=== PATIENT | female | born 1950 | race Caucasian/White ===

== ENCOUNTER 2018-01-09 09:26 | Inpatient (IN) ==
--- NOTE | 2018-01-08 16:34 | Discharge Summary ---
<Rakan Andres - Last Filed: 01/09/18 10:38> Orders not resulted at time of discharge: Pending orders 01/09/18 01:00 XR knee RT limited 1-2V [XR] Routine Hemoglobin and Hematocrit [HEME] Routine 01/09/18 07:55 US anesthesia pain block [US] Routine Date of Encounter: 01/09/18 - Discharge Diagnosis (1) Obesity (BMI 35.0-39.9 without comorbidity) Priority: Secondary Status: Chronic (2) Osteoarthritis of right knee Priority: Primary Status: Chronic Qualifiers: Osteoarthritis type: unspecified Qualified Code(s): M17.11 - Unilateral primary osteoarthritis, right knee (3) Status post total right knee replacement Priority: Primary Status: Acute (4) HTN (hypertension) Priority: Secondary Status: Chronic Qualifiers: Hypertension type: unspecified Qualified Code(s): I10 - Essential (primary ) hypertension (5) Polycystic kidney disease Priority: Secondary Status: Chronic (6) Chronic kidney disease (CKD), stage III (moderate) Priority: Secondary Status: Chronic (7) Secondary hyperparathyroidism Priority: Secondary Status: Chronic - Hospital Course Hospital course: Ms. Roth is a 67 year old female - Time Spent with Patient Total time spent providing and/or coordinating discharge services: - Discharge Medications Prescriptions: Apixaban [Eliquis] 2.5 mg PO BID 12 Days #24 tablet Home Medications: OxyCODONE Immed Rel [Roxicodone 5 MG] 5 mg PO Q6HR PRN 7 Days #28 tablet [Rx] ALPRAZolam [Xanax 0.5 MG Tablet] 0.5 mg PO BID PRN 01/09/18 [History] Atorvastatin [Lipitor] 10 mg PO HS 01/09/18 [History] Bupropion HCl [Wellbutrin Xl] 300 mg PO DAILY 01/09/18 [History] Cholecalciferol (D-3) [Vitamin D] 2,000 unit PO DAILY 01/09/18 [History] Losartan/HCTZ [Hyzaar 50-12.5 Tablet] 1 tab PO BID 01/09/18 [History] Potassium Chloride [K-Tab ER] 20 meq PO BID 01/09/18 [History] Ranitidine HCl [Zantac 75] 75 mg PO DAILY PRN 01/09/18 [History] Zolpidem [Ambien] 10 mg PO HS 01/09/18 [History] Apixaban [Eliquis] 2.5 mg PO BID 12 Days #24 tablet 01/13/18 [Rx] Allergies/Adverse Reactions: 3 Allergy/AdvReac Type Severity Reaction Status Date / Time aspirin Allergy See Verified 01/09/18 10:11 Comments ciprofloxacin [From Cipro] Allergy Hives Verified 01/09/18 10:11 codeine Allergy Itching Verified 01/09/18 10:11 Hydromorphone [From Dilaudid] Allergy Itching Verified 01/09/18 10:11 ibuprofen [From Advil] Allergy See Verified 01/09/18 10:11 Comments Quinolones Allergy See Verified 01/09/18 10:11 Comments Sulfa (Sulfonamide Allergy Hives Verified 01/09/18 10:11 Antibiotics) Primary care physician: Isreal Eng DO - Patient Status Disposition: Transfer Hospital Swing Bed Condition: Good - Discharge Instructions Follow Up With: Isreal Eng DO [Primary Care Provider] - Additional Instructions: Discharge Instructions: Total Knee Replacement Please call [facility] ([phone]), your Primary Care Physician, or report to the Emergency Room if you have any of the following symptoms: Nausea, vomiting, fever greater that 101.5, swelling, chest pain, shortness of breath, increased pain/redness/drainage/odor for your incision site, numbness/ tingling, or any other concerning symptoms. ACTIVITY:Weight-bearing as tolerated. You may progress off support (crutches or walker) as tolerated. Incentive Spirometer 10 times an hour. MEDICATIONS: Upon discharge resume your home medications. Take all the medications as prescribed. Take a stool softener if taking narcotic pain medications. Stool softeners are only effective if you drink enough fluids. Drink 6-8 glass of water or fluids a day, unless this is not allowed for another health problem. Despite using stool softeners, if you haven't had a bowel movement in 3 days, please switch to a gentle laxative. Gentle laxatives are sold over the counter. You should have a bowel movement within 24 hours, if not call the office. You will be discharged from the hospital with a prescription for pain medication. You are encouraged to decrease the use of narcotic pain medication as tolerated. Should you require a refill, please call the office. [facility] prescribes narcotic pain medication for only 4-6 weeks after surgery. If you require pain medication beyond this time period, you may be referred to your Primary Care Physician or to the Pain Clinic for further evaluation. Plan ahead for refills on pain medication as many narcotics either need to be picked up at the office or mailed. It is best to call 48-72 hours in advance of needing a prescription refill so you don't run out of medication. To help control the post-operative pain, you may take NSAIDs (Aleve,Advil, Motrin, Ibuprofen, Naprosyn) or Tylenol as prescribed on the bottle in addition to the pain medication. ANTICOAGULATION (blood thinners): Continue your Aspirin, Lovenox or Coumadin as prescribed to help prevent a blood clot in the leg or in the lungs. As long as your incision remains dry and you tolerate the NSAIDs (Aleve, Advil, Motrin, ibuprofen, naprosyn), it is OK to use the NSAIDS while you are taking your anticoagulation medication. Should your incision start to drain, stop the NSAID and contact our office. Common symptoms of blood clot in the legs include: localized pain, swelling, calf tenderness, redness or discoloration of the skin. Blood clot in the lung symptoms include: shortness of breath, rapid pulse, sweating, and chest pain that worsens with deep breathing, coughing up blood, lightheadedness, feelings of anxiety. If you experience any of these symptoms notify your physician immediately, go to the emergency room, or if having trouble breathing, call 911. WOUND CARE: Leave the dressing on for 7 to 10days. You may change the dressing if it becomes saturated greater than 50%. Do not get the dressing wet at anytime. Wash your hands with antibacterial soap, rinse and dry prior to any wound care. If you have pepe the visiting nurse or rehab facility can remove the stapes 10-14 days after surgery and place steri-strips across the wound. Leave the steri-strips in place until they fall off on their won. You may let water from the shower run on top of the steri-strips. If you do not have a visiting nurse or rehab facility, you will need to return to the office at 10-14 days for the pepe to be removed. If you have itching or redness around the dressing call the office. FOLLOW-UP: Please follow up with your surgeon in the orthopedic clinic in 4 weeks from the day of surgery. If you have pepe that need to be removed, you will need to come back to the office in 10-14 days from the day of surgery. <MarileeYara E - Last Filed: 01/13/18 21:20> Orders not resulted at time of discharge: Pending orders 01/09/18 01:00 XR knee RT limited 1-2V [XR] Routine Hemoglobin and Hematocrit [HEME] Routine Date of Encounter: 01/13/18 Time of Encounter: 12:43 - Discharge Diagnosis (1) Osteoarthritis of right knee Priority: Primary Status: Chronic Qualifiers: Osteoarthritis type: unspecified Qualified Code(s): M17.11 - Unilateral primary osteoarthritis, right knee (2) Status post total right knee replacement Priority: Primary Status: Acute (3) HTN (hypertension) Priority: Secondary Status: Chronic Qualifiers: Hypertension type: unspecified Qualified Code(s): I10 - Essential (primary ) hypertension (4) Polycystic kidney disease Priority: Secondary Status: Chronic (5) Chronic kidney disease (CKD), stage III (moderate) Priority: Secondary Status: Chronic (6) Secondary hyperparathyroidism Priority: Secondary Status: Chronic (7) Obesity Priority: Secondary Status: Chronic Qualifiers: Obesity type: unspecified obesity type Obesity classification: unspecified obesity classification Serious obesity comorbidity presence: unspecified whether serious comorbidity present Qualified Code(s): E66.9 - Obesity, unspecified - Hospital Course Hospital course: Ms. oRth is a 67 year old female POD#4 status post left total knee replacement robotic 01/09/18 Dr. Andres Patient seen at bedside. She is resting in chair - significant other in room. Alert and oriented x 3. Incision clean dry and intact. Dressing intact. No calf tenderness to bilateral lower extremities. Neurovascular intact to bilateral lower extremity. Labwork and medications reviewed. Vital signs reviewed. Pain control: Adequate - current pain regiment working. Nausea stable with PRN Zofran Participating in PT. All questions and concerns addressed. Educated on use of incentive spirometer, ambulation, and hydration. Patient educated on post-operative restrictions and care. Addressed: Patient converted to inpatient status. Patient has polycystic kidney disease and therefore may not be able to take DVT prophylaxis of aspirin upon discharge. We will consult with her oss architect who is here at [facility] for advisement regarding aspirin use following surgery so as not to affect her kidneys. We did discuss alternatives such as Eliquis. Patient is agreeable to try this. Prescription for discharge printed and ready for when she transfers to rehab. D/C plan: Patient requires 3 night stay secondary to her insurance. She will be discharging to [facility] on Saturday 01/13. - Time Spent with Patient Total time spent providing and/or coordinating discharge services: Less than 30 minutes Date of admission: 01/09/18 Primary care physician: Isreal Eng DO Anticipated date of discharge: 01/13/18 Labs on day of discharge: Vital Signs Temp Pulse Resp BP Pulse Ox 01/13/18 10:36 98.6 F 87 18 127/77 96 01/13/18 06:40 98.3 F 88 20 129/65 97 01/13/18 00:10 98.4 F 88 16 112/74 94 Intake and Output 01/13/18 01/13/18 01/13/18 07:59 15:59 23:59 Intake Total 200 / 200 Output Total 400 / 400 Balance -400 / -400 200 / 200 Intake: Oral 200 / 200 Output: Urine 400 / 400 Other: Meal Lunch Percent of Meal Consumed 10% Stool Size Moderate Stool Consistency soft Stool Color Brown # Bowel Movements 1 Blood Glucose* 126 104 - Impressions Knee X-Ray 01/09/18 01:00 IMPRESSION: Status post right knee arthroplasty without acute postop complication. D/ / 01/09/2018 15:08:19 Teo Daniels MD / bcarter Interpreting Provider: Teo Daniels MD - Patient Status Functional capacity at discharge: uses cane/walker Overall status at discharge: patient is progressing back to baseline - Diet and Activity Activity: as per physical therapy Diet: advance to your usual diet
--- NOTE | 2018-01-08 16:37 | Physician Discharge Referral ---
Home Health/Hosp Referral Info Transfer to: Home Health (Patient switched to inpatient rehab from home health plan) Attending Provider: Dr. Rakan Andres Provider in Charge Post Discharge: PCP - Diagnosis (1) Osteoarthritis of right knee Priority: Primary Status: Chronic (2) Status post total right knee replacement Priority: Primary Status: Acute (3) HTN (hypertension) Priority: Secondary Status: Chronic (4) Polycystic kidney disease Priority: Secondary Status: Chronic (5) Chronic kidney disease (CKD), stage III (moderate) Priority: Secondary Status: Chronic (6) Secondary hyperparathyroidism Priority: Secondary Status: Chronic (7) Obesity Priority: Secondary Status: Chronic - Respiratory Orders Smoking Cessation: Smoking cessation has been advised. For more information, call the [employer] Tobacco Quit Line at 0-058-ZJSL-NOW. - Dressing/Wound Care Site: right knee Type of Dressing/Treatments w/Frequency: Opsite placed. Keep dressing intact until first follow up appointment. If greater than 50% saturated, notify office, remove dressing and place appropriate dressing back in place. Leave Zipline intact. Opsite dressing is water resistant, not water-proof. OK to shower, but do not get dressing wet. - Diet/Nutrition Diet/Nutrition Orders: Regular - Activity Activity Orders: Up ad sapna, Ambulate, Chair, Walker Activity: List: Total Knee replacement Precautions x 6 weeks Apply cold therapy wrap 3-6x/day for 20 minutes at a time. Encourage ambulation throughout the day and incentive spirometer 10x/hour. Elevate affected extremity above heart as tolerated. Brace: Wear knee immobilizer at night x 2 weeks. - Services Needed Following services are medically necessary services: Nursing, Home Health Aide, Physical Therapy, Occupational Therapy, Med Social Work - Transfer Medications Prescriptions: Apixaban [Eliquis] 2.5 mg PO BID 12 Days #24 tablet Home Medications: OxyCODONE Immed Rel [Roxicodone 5 MG] 5 mg PO Q6HR PRN 7 Days #28 tablet [Rx] ALPRAZolam [Xanax 0.5 MG Tablet] 0.5 mg PO BID PRN 01/09/18 [History] Atorvastatin [Lipitor] 10 mg PO HS 01/09/18 [History] Bupropion HCl [Wellbutrin Xl] 300 mg PO DAILY 01/09/18 [History] Cholecalciferol (D-3) [Vitamin D] 2,000 unit PO DAILY 01/09/18 [History] Losartan/HCTZ [Hyzaar 50-12.5 Tablet] 1 tab PO BID 01/09/18 [History] Potassium Chloride [K-Tab ER] 20 meq PO BID 01/09/18 [History] Ranitidine HCl [Zantac 75] 75 mg PO DAILY PRN 01/09/18 [History] Zolpidem [Ambien] 10 mg PO HS 01/09/18 [History] Apixaban [Eliquis] 2.5 mg PO BID 12 Days #24 tablet 01/13/18 [Rx] Allergies/Adverse Reactions: 3 Allergy/AdvReac Type Severity Reaction Status Date / Time aspirin Allergy See Verified 01/09/18 10:11 Comments ciprofloxacin [From Cipro] Allergy Hives Verified 01/09/18 10:11 codeine Allergy Itching Verified 01/09/18 10:11 Hydromorphone [From Dilaudid] Allergy Itching Verified 01/09/18 10:11 ibuprofen [From Advil] Allergy See Verified 01/09/18 10:11 Comments Quinolones Allergy See Verified 01/09/18 10:11 Comments Sulfa (Sulfonamide Allergy Hives Verified 01/09/18 10:11 Antibiotics) Certification: Further, I certify that my clinical findings support that this patient is homebound (i.e. absences from home require considerable and taxing effort and are for medical reasons or mosque services or infrequently or short duration when for other reasons) because: Homebound Reason: Post-surgery restriction and or conditions limit ability to leave home Attestation: My signature below is to certify that this patient is under my care and that I, or nurse practitioner, or a physician technician assistant working with me, has a face-to- face encounter with this patient.
[2018-01-09] MEDS ORDERED: CeFAZolin Syr 2,000MG/20 ML 2,000 MG/20 ML SYRINGE IVPB ONE (09:51)
[2018-01-09] MEDS ORDERED: *HR* Midazolam HCl 2 MG/2 ML VIAL ONE (09:55)
[2018-01-09] MEDS ORDERED: *HR* FentaNYL (PF) 100 MCG/2 ML VIAL ONE ×3 (09:55→12:28)
[2018-01-09] MEDS ORDERED: Lidocaine -MPF 2% 2 ML VIAL ONE ×2 (09:56→11:18)
[2018-01-09] MEDS ORDERED: Propofol 500 MG/50 ML INFUS..BTL ONE (09:56)
[2018-01-09] MEDS ORDERED: Dexamethasone 4 MG/ML VIAL ONE (09:56)
[2018-01-09] MEDS ORDERED: Ondansetron 4 MG/2 ML VIAL ONE (09:56)
[2018-01-09] MEDS ORDERED: Ringers Solution, Lactated 1,000 ML IVC SCH ×2 (10:00→14:58)
[2018-01-09] MEDS ORDERED: ROPIVACAINE HCL/PF 0.5% 30 ML VIAL ONE (10:35)
--- NOTE | 2018-01-09 10:37 | Anesthesia Evaluation PreOp ---
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 due to methadone) Alcohol Use: occasionally Drug use: none Medications and Allergies Aspirin Enteric Coated [Aspirin EC] 325 mg PO BID 10 Days #20 tablet. [Rx] OxyCODONE Immed Rel [Roxicodone 5 MG] 5 mg PO Q6HR PRN 7 Days #28 tablet [Rx] ALPRAZolam [Xanax 0.5 MG Tablet] 0.5 mg PO BID PRN 01/09/18 [History] Atorvastatin [Lipitor] 10 mg PO HS 01/09/18 [History] Bupropion HCl [Wellbutrin Xl] 300 mg PO DAILY 01/09/18 [History] Cholecalciferol (D-3) [Vitamin D] 2,000 unit PO DAILY 01/09/18 [History] Losartan/HCTZ [Hyzaar 50-12.5 Tablet] 1 tab PO BID 01/09/18 [History] Potassium Chloride [K-Tab ER] 20 meq PO BID 01/09/18 [History] Ranitidine HCl [Zantac 75] 75 mg PO DAILY PRN 01/09/18 [History] Zolpidem [Ambien] 10 mg PO HS 01/09/18 [History] 3 Allergy/AdvReac Type Severity Reaction Status Date / Time aspirin Allergy See Verified 01/09/18 10:11 Comments ciprofloxacin [From Cipro] Allergy Hives Verified 01/09/18 10:11 codeine Allergy Itching Verified 01/09/18 10:11 Hydromorphone [From Dilaudid] Allergy Itching Verified 01/09/18 10:11 ibuprofen [From Advil] Allergy See Verified 01/09/18 10:11 Comments Quinolones Allergy See Verified 01/09/18 10:11 Comments Sulfa (Sulfonamide Allergy Hives Verified 07/30/18 10:11 Antibiotics) - Meds/Allergy Pre-op Review Medications Reviewed: Yes Allergies Reviewed: Yes Beta Blockers on Current Med List: No Anesthesia Results - Labs Laboratory Tests 12/23/17 12/23/17 01/02/18 14:45 14:45 14:25 Hgb 13.4 Hct 41.0 Plt Count 289 PT 11.1 INR 1.0 APTT 58.2 H Potassium 4.1 Carbon Dioxide 26 BUN 18 Creatinine 1.22 H Est GFR (Non-Af Amer) 44 L Glucose 98 01/04/18 13:13 Hgb Hct Plt Count PT INR APTT 60.6 H Potassium Carbon Dioxide BUN Creatinine Est GFR (Non-Af Amer) Glucose Anesthesia Exam O2 Sat Height 1.63 m Height 1.63 m Height 1.63 m Weight 104.326 kg Weight 104.326 kg Weight 104.326 kg O2 Sat by Pulse Oximetry 95 Vital Signs Temp Pulse Resp BP Pulse Ox 98.3 F 83 18 121/73 95 01/09/18 09:47 01/09/18 09:47 01/09/18 09:47 01/09/18 09:47 01/09/18 09:47 NPO (# of Hours): 8 - HEENT Pupil (Motor): Pupils equal Mallampati: II Teeth: Edentulous Denture Type: Upper: Complete, Lower: Complete Oral Opening: Greater than 3 - GR[employer] 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
--- NOTE | 2018-01-09 10:38 | History & Physical Report ---
Date of Encounter: 01/09/18 Time of Encounter: 10:38 24 Hour HP Update - Instructions Instructions: If the History and Physical is less than 30 days old and was completed prior to A.M. admission and or procedure and has NOT been updated on calendar day of procedure please complete this update prior to performing procedure. - Update Patient reports changes in Medical Condition: No Changes in examination, assessment, or condition: No Changes in Medication: No Preop tests/diagnostics Reviewed: Yes Surgery Remains Indicated: Yes Consent for Planned Operative Procedure(s) Verified: Yes - Pre-Operative Checklist Preoperative Checklist Indicated: No Prophylactic Antibiotic Ordered: Yes Is VTE Prophylaxis Indicated?: Yes
[2018-01-09] MEDS ORDERED: Bupivacaine/Clonidine Syringe 1 EACH SYRINGE ONE (10:41)
[2018-01-09] MEDS ORDERED: Acetaminophen IV 1,000 MG/100 ML INFUS..BTL ONE (10:50)
[2018-01-09] MEDS ORDERED: Ethanol\\Acetic Acid\\Na Ace\\Ben 1,000 ML IRRIG.SOLN IR ONE (11:16)
[2018-01-09] MEDS ORDERED: *HR* Propofol 200 MG/20 ML VIAL IVP ONE ×2 (11:18→11:56)
--- NOTE | 2018-01-09 11:18 | Anesthesia Procedures ---
Date of Encounter: 01/09/18 Time of Encounter: 11:00 Procedures: Anesthesia - Nerve Block Procedure Date: 01/09/18 Time: 11:00 Allergies/Adv Reactions: cipro, dilaudid, quinolonesASA, Codeine, Ibuprofen Pre-op Diagnosis: Right Knee Arthritis Surgical Procedure: Robotic Right Total Knee Arthroplasty Checklist: Correct Patient Identifier, Correct procedure, History checked Correct side: Right Blood Thinner: No Monitor Applied: EKG, BP, Pulse Oximetry Supplemental Oxygen via Nasal Cannula (L/min): 2 Sedation: Versed (mg): 2 Sedation: Fentanyl (mcg): 100 Indication: Post Op Analgesia Pre-op Neuro Deficits: No Block Type: Other (Adductor Canal and Ipack) Sterile Technique: No Ultrasound used: Yes Anatomy identified: Yes Visual spread of Local: Yes Neuro Stimulation: No Blood on Needle Aspiration: No Smooth Injection of Local: Yes Pain with Injection of Local: No Prep: Chlorhexadine Needle: 21 x 100 mm Stimuplex Local: 0.25% Bupivicaine w/Clonidine 20 mcg/cc (for Ipackl), Ropivacaine (.5% 30 ml for adductor canal) Volume (cc): 50ml total Number of Attempts: 1 (1 attempt for each block) Complications: None/effective block Vitals: VSS throughout Procedure
[2018-01-09] MEDS ORDERED: *HR* Morphine 10 MG/ML VIAL ONE ×2 (11:57→12:36)
[2018-01-09] MEDS ORDERED: Dexamethasone 4 MG/ML VIAL IVP ONE (12:14)
[2018-01-09] MEDS ORDERED: *HR* OxyCODONE Immed Rel 5 MG TABLET PO PRN (12:14)
[2018-01-09] MEDS ORDERED: *HR* Promethazine 25 MG/ML VIAL IVP PRN (12:14)
--- NOTE | 2018-01-09 12:37 | Orthopedic Operative Note ---
Date of procedure: 01/09/18 Pre-op diagnosis: Right knee arthritis Post-op diagnosis: same Procedure: Procedure: Right robotic-assisted Total knee replacement Estimated blood loss: 500 cc Hardware: Metal and polyethylene replacement. Rexford Femur: 4 Tibia: 4 TS insert: 9 Patella: 36 Exam Under anesthesia: 7 degree flexion contracture 8 degree varus as calculated by the robot full flexion and no instability Procedural Notes: Grade 4 arthritic changes all 3 compartments. Operative procedure: The patient was brought to the operating room and placed on the operating room table. After general anesthesia was administered the operative knee was examined. Findings were noted in the exam under anesthesia. The operative extremity was prepped and draped in sterile surgical fashion. The patient received IV antibiotics prior to skin incision. A standard midline incision was made centered over the patella. The incision was made through the skin and subcutaneous tissue. A medial parapatellar tendon approach was performed. Care was taken to preserve tissue along the medial aspect of the patella. And to protect the patella tendon. The deep MCL was released off the medial tibia. The infra patella fat pad was excised. The patella was everted and cut was made at the level of the insertion of the quadriceps and patella tendon. The patella was sized to a 36 the guide was seated and the lug holes are drilled. Knee was brought into flexion. Patient noted to have Steinmann pins were placed in the tibia and the femur for the tibial and femoral arrays respectively. Checkpoints were also placed in the tibia and the femur for calculation purposes. The knee including the femur and the tibial registered. Osteophytes, ACL and PCL were excised at this point. Extension and flexion were assessed with a valgus stress components were adjusted on the computer to balance the knee. Femoral cuts were made first with robotic assistance, these included the anterior cut posterior cuts chamfer cuts. Tibial cut was then performed with robotic assistance as well. Bone fragments were removed, as well as the medial and lateral meniscus. The size 4 femoral guide was seated box cut was made lug holes are drilled. The size 4 tibial tray was seated and prepared with the fin cutter. Trial reduction with the 9 TS Iveth revealed extension of 0 degree and 4 degree varus full flexion. No varus valgus instability. Trial reduction revealed excellent patella tracking. All trial components were removed all bony surfaces were irrigated. The Tibia was seated followed by the femur, The Iveth size 9 was seated and secured patella. Patient had similar findings for motion and stability. The knee was closed by the PA. The knee was then irrigated out with 2 L of pulse irrigation. The extensor mechanism was closed with #2 FiberWire suture and #2 PDS suture. The subcutaneous tissue was then irrigated and closed deep with #1 PDS suture superficially with 0 PDS suture and skin was closed with zip tie The patient was then placed in a sterile dressing and a postoperative brace extubated and transferred to recovery room in stable condition. Anesthesia: GETA Surgeon: Rakan Andres Was there an graphic design assistant present: Yes Air Boatswain: Glendy Galvan Estimated blood loss (cc): 500 Condition: stable Disposition: PACU
[2018-01-09] MEDS: MORPHINE SUL Oral CONC 10 MG/0.5 ML ORAL.SYG SL PRN ×2 (13:16→13:28)
[2018-01-09 13:37] LABS: Hematocrit 38.4 % (35.3-44.9); Hemoglobin 12.8 g/dL (11.5-15.4)
[2018-01-09] MEDS ORDERED: MOM Conc 10 ML UD.LIQ PO PRN (14:58)
[2018-01-09] MEDS ORDERED: Naloxone 0.4 MG/ML INJ IVP PRN (14:58)
[2018-01-09] MEDS ORDERED: Famotidine 20 MG TABLET PO PRN (14:58)
[2018-01-09] MEDS ORDERED: Dextrose Gel 15 GM/37.5 ML TUBE PO PRN ×2 (14:58)
[2018-01-09] MEDS ORDERED: Sennosides 8.6 MG TABLET PO PRN (14:58)
[2018-01-09] MEDS ORDERED: traMADol 50 MG TABLET PO PRN (14:58)
[2018-01-09] MEDS ORDERED: Ondansetron 4 MG/2 ML VIAL IVP PRN (14:58)
[2018-01-09] MEDS ORDERED: Temazepam 15 MG CAPSULE PO PRN (14:58)
[2018-01-09] MEDS ORDERED: *HR* Dextrose 50 % in Water (Syg) 50 ML SYRINGE IVP PRN (14:58)
[2018-01-09] MEDS ORDERED: D5% in Water 1,000 ML IVC PRN (14:58)
[2018-01-09] MEDS: Insulin LISPRO 300 UNITS/3 ML VIAL SQ SCH ×3 (15:26→21:29)
[2018-01-09] MEDS: *HR* Enoxaparin 30 MG/0.3 ML SYRINGE SQ SCH (18:02)
--- NOTE | 2018-01-09 18:46 | Anesthesia Evaluation Post Op ---
Date of Encounter: 01/09/18 Time of Encounter: 14:10 Notes: Patient's vital signs have been reviewed. Patient is stable postoperatively and has adequately recovered from anesthesia. Patient is determined to have stable airway patency and respiratory function including respiratory rate and oxygen saturation. Patient has a stable heart rate, blood pressure and adequate hydration. Patients mental status is acceptable. Patients temperature is appropriate. Pain and nausea are adequately controlled. - Discharge PostOp Status: Transfer Patient to floor
[2018-01-09] MEDS: Losartan/HCTZ 50-12.5 TABLET PO SCH (21:05)
[2018-01-09] MEDS: ALPRAZolam 0.5 MG TABLET PO PRN (21:12)
[2018-01-10] MEDS: *HR* OxyCODONE/APAP 5/325 TABLET PO PRN ×5 (01:41→23:54)
[2018-01-10 01:44] LABS: Hematocrit 34.8 % (35.3-44.9); Hemoglobin 11.4 g/dL (11.5-15.4)
[2018-01-10 02:05] LABS: Calcium 8.8 mg/dL (8.6-10.3); Potassium 4.1 mEq/L (3.5-5.1)
[2018-01-10] MEDS: *HR* Enoxaparin 30 MG/0.3 ML SYRINGE SQ SCH ×2 (05:10→18:42)
--- NOTE | 2018-01-10 06:50 | Orthopedics Progress Note ---
Date of Encounter: 01/10/18 Time of Encounter: 06:50 - Assessment and Plan (1) Obesity (BMI 35.0-39.9 without comorbidity) Current Visit: Yes Status: Chronic (2) Osteoarthritis of right knee Current Visit: No Status: Chronic Qualifiers: Osteoarthritis type: unspecified Qualified Code(s): M17.11 - Unilateral primary osteoarthritis, right knee (3) Status post total right knee replacement Current Visit: No Status: Acute (4) HTN (hypertension) Current Visit: No Status: Chronic Qualifiers: Hypertension type: unspecified Qualified Code(s): I10 - Essential (primary ) hypertension (5) Polycystic kidney disease Current Visit: No Status: Chronic (6) Chronic kidney disease (CKD), stage III (moderate) Current Visit: No Status: Chronic (7) Secondary hyperparathyroidism Current Visit: No Status: Chronic Subjective Interval history: Patient was seen this morning doing well without complaints. Afebrile vital signs stable. Operative extremity: Neurovascularly intact Dressing clean dry and intact Calves nontender Assessment and plan: Continue with postoperative care Hematocrit 34 patient is unsafe to go home will require ECF converted to inpatient status. Objective Vital signs: Vital Signs Temp Pulse Resp BP Pulse Ox 01/10/18 03:43 98.3 F 85 16 105/69 96 01/09/18 23:38 99.2 F 88 16 122/75 97 01/09/18 19:42 98.1 F 92 16 114/75 95 01/09/18 18:06 97.4 F L 96 16 122/79 95 01/09/18 16:50 97.7 F 89 16 138/91 94 01/09/18 15:50 97.6 F 82 16 136/84 97 01/09/18 15:20 97.8 F 88 16 134/84 98 01/09/18 15:10 97.4 F L 86 16 138/85 98 01/09/18 15:04 98 01/09/18 14:37 97.6 F 86 16 138/79 94 01/09/18 14:27 85 14 135/79 97 01/09/18 14:17 87 16 137/80 94 01/09/18 14:07 97.9 F 86 18 143/80 96 01/09/18 13:57 86 18 127/83 96 01/09/18 13:47 86 16 137/75 96 01/09/18 13:37 98.0 F 84 18 133/69 96 01/09/18 13:27 86 16 137/67 97 01/09/18 13:17 91 16 130/77 96 01/09/18 13:07 97.9 F 92 12 120/97 92 01/09/18 11:16 78 16 119/79 93 01/09/18 11:09 78 16 125/79 96 01/09/18 10:56 80 16 133/75 97 01/09/18 09:47 98.3 F 83 18 121/73 95 Intake and Output 01/09/18 01/09/18 01/10/18 15:59 23:59 07:59 Intake Total 20 / 20 300 / 300 Output Total 500 / 500 500 / 500 Balance -480 / -480 300 / 300 -500 / -500 Intake: IV Fluids 20 / 20 100 / 100 Ancef Syringe 2,000 MG/20 ML 2, 20 / 20 000 mg In 20 ml @ 200 mls/hr IVPB PREOP ONE Rx#:[id number] Ancef 2,000 MG In 0.9 % Sodium 100 / 100 Chloride 100 ML @ 200 mls/hr IVPB Q8H HINA Rx#:[id number] Oral 0 / 0 200 / 200 Output: Urine 0 / 0 500 / 500 Estimated Blood Loss 500 / 500 Other: # Voids 1 1 Weight 104.326 kg Blood Glucose* 177 - Labs CBC & BMP: 01/10/18 01:29 01/10/18 01:29 Labs: Abnormal lab results Hgb 11.4 g/dL (11.5-15.4) L 01/10/18 01:29 Hct 34.8 % (35.3-44.9) L 01/10/18 01:29 Sodium 135 mEq/L (136-145) L 01/10/18 01:29 Creatinine 1.30 mg/dL (0.60-1.20) H 01/10/18 01:29 Est GFR ( Amer) 49 (> 60) L 01/10/18 01:29 Est GFR (Non-Af Amer) 41 (> 60) L 01/10/18 01:29 Glucose 165 mg/dL (70-105) H 01/10/18 01:29 POC Glucose 177 mg/dL (70-99) H 01/09/18 20:37 - VTE Documentation of Mechanical Device: Venous foot pump, device Consult Discharge Plan - Plan Referrals: Isreal Eng DO [Primary Care Provider] - Prescriptions: Aspirin Enteric Coated [Aspirin EC] 325 mg PO BID 10 Days #20 tablet.dr Hagen Immed Rel [Roxicodone 5 MG] 5 mg PO Q6HR PRN 7 Days #28 tablet PRN Reason: Severe Pain
[2018-01-10] MEDS: Insulin LISPRO 300 UNITS/3 ML VIAL SQ SCH ×4 (08:29→20:50)
[2018-01-10] MEDS: Losartan/HCTZ 50-12.5 TABLET PO SCH ×2 (08:33→20:49)
[2018-01-10] MEDS: BuPROPion XL (24 HR) 150 MG TABLET PO SCH (08:33)
[2018-01-10] MEDS: Cholecalciferol (D-3) 1,000 UNIT TABLET PO SCH (08:33)
--- NOTE | 2018-01-10 18:28 | Event Note ---
Date of Encounter: 01/10/18 Time of Encounter: 12:45 PCR- POD#1 status post left total knee replacement robotic 01/09/18 Dr. Andres PCR - Patient seen at bedside. No family available at bedside. Alert and oriented x 3. Incision clean dry and intact. Dressing intact. No calf tenderness to bilateral lower extremities. Neurovascular intact to bilateral lower extremity. Labwork and medications reviewed. H/H 11.4/34.8 Vital signs reviewed. Pain control: Adequate - patient having itching with oxycodone. She is taking Benadryl which is helping however she states that she has had ongoing itching despite the Benadryl. She states that she typically does the best with Percocet and Benadryl. We will see about switching her to this regimen and set of plain oxycodone. Participating in PT. All questions and concerns addressed. Educated on use of incentive spirometer, ambulation, and hydration. Patient educated on post-operative restrictions and care. Addressed: Patient converted to inpatient status. Patient has polycystic kidney disease and therefore may not be able to take DVT prophylaxis of aspirin upon discharge. We will consult with her hide and skin fleshing machine operator who is here at [facility] for advisement regarding aspirin use following surgery so as not to affect her kidneys. We did discuss alternatives such as Eliquis. Patient is agreeable to try this if recommended by Dr. Mike Shepherd. D/C plan: Patient requires 3 night stay secondary to her insurance. She will be discharging to [facility] on Saturday 01/13.
[2018-01-10] MEDS: ALPRAZolam 0.5 MG TABLET PO PRN (20:49)
[2018-01-10] MEDS: *HR* OxyCODONE Immed Rel 5 MG TABLET PO PRN (20:50)
[2018-01-11 01:23] LABS: Hematocrit 30.9 % (35.3-44.9); Hemoglobin 10.2 g/dL (11.5-15.4)
[2018-01-11 01:39] LABS: Calcium 8.9 mg/dL (8.6-10.3); Potassium 3.5 mEq/L (3.5-5.1)
[2018-01-11] MEDS: *HR* OxyCODONE Immed Rel 5 MG TABLET PO PRN ×4 (03:20→17:38)
[2018-01-11] MEDS: *HR* Enoxaparin 30 MG/0.3 ML SYRINGE SQ SCH ×2 (06:08→17:37)
--- NOTE | 2018-01-11 06:47 | Orthopedics Progress Note ---
Date of Encounter: 01/11/18 Time of Encounter: 06:47 - Assessment and Plan (1) Obesity (BMI 35.0-39.9 without comorbidity) Current Visit: Yes Status: Chronic (2) Osteoarthritis of right knee Current Visit: No Status: Chronic Qualifiers: Osteoarthritis type: unspecified Qualified Code(s): M17.11 - Unilateral primary osteoarthritis, right knee (3) Status post total right knee replacement Current Visit: No Status: Acute (4) HTN (hypertension) Current Visit: No Status: Chronic Qualifiers: Hypertension type: unspecified Qualified Code(s): I10 - Essential (primary ) hypertension (5) Polycystic kidney disease Current Visit: No Status: Chronic (6) Chronic kidney disease (CKD), stage III (moderate) Current Visit: No Status: Chronic (7) Secondary hyperparathyroidism Current Visit: No Status: Chronic Subjective Interval history: Patient was seen this morning doing well without complaints. Afebrile vital signs stable. Operative extremity: Neurovascularly intact Dressing clean dry and intact Calves nontender Assessment and plan: Continue with postoperative care Hematocrit 30.9 Objective Vital signs: Vital Signs Temp Pulse Resp BP Pulse Ox 01/11/18 03:23 100.0 F H 102 18 124/77 97 01/10/18 23:14 99.4 F 99 18 127/56 100 01/10/18 18:56 99.0 F 93 16 133/82 93 01/10/18 15:49 99.1 F 95 18 125/60 96 01/10/18 11:22 98.7 F 76 18 129/83 96 01/10/18 07:51 98.2 F 88 18 121/78 97 Intake and Output 01/10/18 01/10/18 01/11/18 15:59 23:59 07:59 Intake Total 480 / 480 200 / 200 300 / 300 Balance 480 / 480 200 / 200 300 / 300 Intake: Oral 480 / 480 200 / 200 300 / 300 Other: Meal Lunch Percent of Meal Consumed 50% # Voids 1 1 1 Blood Glucose* 106 136 - Labs CBC & BMP: 01/11/18 01:00 01/11/18 01:00 Labs: Abnormal lab results Hgb 10.2 g/dL (11.5-15.4) L 01/11/18 01:00 Hct 30.9 % (35.3-44.9) L 01/11/18 01:00 Sodium 131 mEq/L (136-145) L 01/11/18 01:00 Est GFR ( Amer) 57 (> 60) L 01/11/18 01:00 Est GFR (Non-Af Amer) 47 (> 60) L 01/11/18 01:00 Glucose 127 mg/dL (70-105) H 01/11/18 01:00 POC Glucose 136 mg/dL (70-99) H 01/10/18 19:04 Calculated Osmolality 276 (280-300) L 01/11/18 01:00 - VTE Documentation of Mechanical Device: Intermittent pneumatic compression device Consult Discharge Plan - Plan Referrals: Isreal Eng DO [Primary Care Provider] -
[2018-01-11] MEDS: Cholecalciferol (D-3) 1,000 UNIT TABLET PO SCH (08:48)
[2018-01-11] MEDS: Losartan/HCTZ 50-12.5 TABLET PO SCH ×2 (08:48→20:37)
[2018-01-11] MEDS: BuPROPion XL (24 HR) 150 MG TABLET PO SCH (08:48)
[2018-01-11] MEDS: Insulin LISPRO 300 UNITS/3 ML VIAL SQ SCH ×4 (08:49→20:37)
--- NOTE | 2018-01-11 17:05 | Event Note ---
Date of Encounter: 01/11/18 Time of Encounter: 11:40 PCR- POD#2 status post left total knee replacement robotic 01/09/18 Dr. Andres PCR - Patient seen at bedside. Alert and oriented x 3. Incision clean dry and intact. Dressing intact. No calf tenderness to bilateral lower extremities. Neurovascular intact to bilateral lower extremity. Labwork and medications reviewed. H/H - 10.2/30.9 Vital signs reviewed. Pain control: Adequate - states itching is much improved today, benadryl helping. current pain regiment working. New nausea - will add zofran Participating in PT. All questions and concerns addressed. Educated on use of incentive spirometer, ambulation, and hydration. Patient educated on post-operative restrictions and care. Addressed: Patient converted to inpatient status. Patient has polycystic kidney disease and therefore may not be able to take DVT prophylaxis of aspirin upon discharge. We will consult with her pupil personnel services director who is here at [facility] for advisement regarding aspirin use following surgery so as not to affect her kidneys. We did discuss alternatives such as Eliquis. Patient is agreeable to try this if recommended by Dr. Mike Shepherd. - still attempting to contact. D/C plan: Patient requires 3 night stay secondary to her insurance. She will be discharging to [facility] on Saturday 01/13. Short CBC 01/11/18 Range/Units 01:00 Hgb 10.2 L (11.5-15.4) g/dL Hct 30.9 L (35.3-44.9) % BMP 01/11/18 Range/Units 01:00 Sodium 131 L (136-145) mEq/L Potassium 3.5 (3.5-5.1) mEq/L Chloride 98 (98-107) mEq/L Carbon Dioxide 25 (23-29) mEq/L BUN 19 (8-23) mg/dL Creatinine 1.14 (0.60-1.20) mg/dL Glucose 127 H (70-105) mg/dL Calcium 8.9 (8.6-10.3) mg/dL
[2018-01-11] MEDS: ALPRAZolam 0.5 MG TABLET PO PRN (20:39)
[2018-01-12] MEDS: *HR* OxyCODONE Immed Rel 5 MG TABLET PO PRN (00:21)
[2018-01-12] MEDS: *HR* Enoxaparin 30 MG/0.3 ML SYRINGE SQ SCH ×2 (05:50→19:28)
--- NOTE | 2018-01-12 06:47 | Orthopedics Progress Note ---
Date of Encounter: 01/12/18 Time of Encounter: 06:46 - Assessment and Plan (1) Obesity (BMI 35.0-39.9 without comorbidity) Current Visit: Yes Status: Chronic (2) Osteoarthritis of right knee Current Visit: No Status: Chronic Qualifiers: Osteoarthritis type: unspecified Qualified Code(s): M17.11 - Unilateral primary osteoarthritis, right knee (3) Status post total right knee replacement Current Visit: No Status: Acute (4) HTN (hypertension) Current Visit: No Status: Chronic Qualifiers: Hypertension type: unspecified Qualified Code(s): I10 - Essential (primary ) hypertension (5) Polycystic kidney disease Current Visit: No Status: Chronic (6) Chronic kidney disease (CKD), stage III (moderate) Current Visit: No Status: Chronic (7) Secondary hyperparathyroidism Current Visit: No Status: Chronic Subjective Interval history: Patient was seen this morning doing well without complaints. Afebrile vital signs stable. Operative extremity: Neurovascularly intact Dressing clean dry and intact Calves nontender Assessment and plan: Continue with postoperative care Objective Vital signs: Vital Signs Temp Pulse Resp BP Pulse Ox 01/12/18 05:15 98.7 F 90 16 101/66 93 01/11/18 23:04 98.7 F 110 14 111/68 94 01/11/18 19:43 98.6 F 97 16 123/80 98 01/11/18 14:08 98.5 F 87 16 129/78 96 01/11/18 09:55 98.8 F 92 16 126/78 98 01/11/18 07:38 98.6 F 96 18 129/68 97 Intake and Output 01/11/18 01/11/18 01/12/18 15:59 23:59 07:59 Intake Total 840 / 840 Output Total 550 / 550 600 / 600 Balance 290 / 290 -600 / -600 Intake: Oral 840 / 840 Output: Urine 550 / 550 600 / 600 Other: Meal Lunch Percent of Meal Consumed 50% # Voids 1 Blood Glucose* 125 108 - Labs CBC & BMP: 01/11/18 01:00 01/11/18 01:00 Labs: Abnormal lab results Hgb 10.2 g/dL (11.5-15.4) L 01/11/18 01:00 Hct 30.9 % (35.3-44.9) L 01/11/18 01:00 Sodium 131 mEq/L (136-145) L 01/11/18 01:00 Est GFR ( Amer) 57 (> 60) L 01/11/18 01:00 Est GFR (Non-Af Amer) 47 (> 60) L 01/11/18 01:00 Glucose 127 mg/dL (70-105) H 01/11/18 01:00 POC Glucose 108 mg/dL (70-99) H 01/11/18 19:54 Calculated Osmolality 276 (280-300) L 01/11/18 01:00 - VTE Documentation of Mechanical Device: Venous foot pump, device Consult Discharge Plan - Plan Referrals: Isreal Eng DO [Primary Care Provider] -
[2018-01-12] MEDS: Insulin LISPRO 300 UNITS/3 ML VIAL SQ SCH ×4 (08:28→21:48)
[2018-01-12] MEDS: Cholecalciferol (D-3) 1,000 UNIT TABLET PO SCH (08:29)
[2018-01-12] MEDS: Losartan/HCTZ 50-12.5 TABLET PO SCH ×2 (08:30→21:47)
[2018-01-12] MEDS: BuPROPion XL (24 HR) 150 MG TABLET PO SCH (08:30)
[2018-01-12] MEDS: *HR* OxyCODONE/APAP 5/325 TABLET PO PRN (11:31)
--- NOTE | 2018-01-12 16:39 | Event Note ---
Date of Encounter: 01/12/18 Time of Encounter: 13:30 PCR- POD#3 status post left total knee replacement robotic 01/09/18 Dr. Andres PCR - Patient seen at bedside. She is resting in chair. Alert and oriented x 3. Incision clean dry and intact. Dressing intact. No calf tenderness to bilateral lower extremities. Neurovascular intact to bilateral lower extremity. Labwork and medications reviewed. Vital signs reviewed. Pain control: Adequate - current pain regiment working. Nausea stable with PRN Zofran Participating in PT. All questions and concerns addressed. Educated on use of incentive spirometer, ambulation, and hydration. Patient educated on post-operative restrictions and care. Addressed: Patient converted to inpatient status. Patient has polycystic kidney disease and therefore may not be able to take DVT prophylaxis of aspirin upon discharge. We will consult with her cheese maker who is here at [facility] for advisement regarding aspirin use following surgery so as not to affect her kidneys. We did discuss alternatives such as Eliquis. Patient is agreeable to try this. Prescription for discharge printed and ready for when she transfers to rehab. D/C plan: Patient requires 3 night stay secondary to her insurance. She will be discharging to [facility] on Saturday 01/13. Vital Signs Temp Pulse Resp BP Pulse Ox 01/12/18 15:04 98.8 F 90 16 116/69 99 01/12/18 11:10 98.3 F 87 16 111/75 97 01/12/18 07:03 98.6 F 117 16 114/72 94 01/12/18 05:15 98.7 F 90 16 101/66 93 01/11/18 23:04 98.7 F 110 14 111/68 94 01/11/18 19:43 98.6 F 97 16 123/80 98 Intake and Output 01/12/18 01/12/18 01/12/18 07:59 15:59 23:59 Intake Total 480 / 480 Output Total 600 / 600 500 / 500 Balance -600 / -600 -20 / -20 Intake: Oral 480 / 480 Output: Urine 600 / 600 500 / 500 Other: Meal Lunch Percent of Meal Consumed 45% # Voids 1 Blood Glucose* 125 131 128
--- NOTE | 2018-01-12 16:40 | Physician Discharge Referral ---
ExtendedCare Referral Info Transfer To: Inpt Rehab Provider in Charge: Dr. Rakan Andres Provider in Charge after Transfer: PCP - Diagnosis (1) Osteoarthritis of right knee Priority: Primary Status: Chronic (2) Status post total right knee replacement Priority: Primary Status: Acute (3) HTN (hypertension) Priority: Secondary Status: Chronic (4) Polycystic kidney disease Priority: Secondary Status: Chronic (5) Chronic kidney disease (CKD), stage III (moderate) Priority: Secondary Status: Chronic (6) Secondary hyperparathyroidism Priority: Secondary Status: Chronic (7) Obesity Priority: Secondary Status: Chronic Expected Duration of Placement: less than 30 days Prognosis: Good Aware of Diagnosis: Patient Aware of Prognosis: Patient - Transfer Medications Prescriptions: Apixaban [Eliquis] 2.5 mg PO BID 12 Days #24 tablet Home Medications: OxyCODONE Immed Rel [Roxicodone 5 MG] 5 mg PO Q6HR PRN 7 Days #28 tablet [Rx] ALPRAZolam [Xanax 0.5 MG Tablet] 0.5 mg PO BID PRN 01/09/18 [History] Atorvastatin [Lipitor] 10 mg PO HS 01/09/18 [History] Bupropion HCl [Wellbutrin Xl] 300 mg PO DAILY 01/09/18 [History] Cholecalciferol (D-3) [Vitamin D] 2,000 unit PO DAILY 01/09/18 [History] Losartan/HCTZ [Hyzaar 50-12.5 Tablet] 1 tab PO BID 01/09/18 [History] Potassium Chloride [K-Tab ER] 20 meq PO BID 01/09/18 [History] Ranitidine HCl [Zantac 75] 75 mg PO DAILY PRN 01/09/18 [History] Zolpidem [Ambien] 10 mg PO HS 01/09/18 [History] Apixaban [Eliquis] 2.5 mg PO BID 12 Days #24 tablet 01/13/18 [Rx] Allergies/Adverse Reactions: 3 Allergy/AdvReac Type Severity Reaction Status Date / Time aspirin Allergy See Verified 01/09/18 10:11 Comments ciprofloxacin [From Cipro] Allergy Hives Verified 01/09/18 10:11 codeine Allergy Itching Verified 01/09/18 10:11 Hydromorphone [From Dilaudid] Allergy Itching Verified 01/09/18 10:11 ibuprofen [From Advil] Allergy See Verified 01/09/18 10:11 Comments Quinolones Allergy See Verified 01/09/18 10:11 Comments Sulfa (Sulfonamide Allergy Hives Verified 01/09/18 10:11 Antibiotics) - Respiratory Orders Smoking Cessation: Smoking cessation has been advised. For more information, call the [place] Tobacco Quit Line at 0-536-VCFG-NOW. - Ancillary Orders May use pressure relief devices daily prn, May go on FILIPE w/family/respon alliance party w /meds at nurse discretion PRN, May consult with Dentist, Sales Representative Gas Service, Fish Smoker PRN - Mobility Orders Chair, Ambulate - Rehabiliation Orders Rehab Potential: Good Rehab Orders: Evaluation for Physical Therapy, Evaluation for Occupational Therapy Other: Total Knee replacement Precautions x 6 weeks Apply cold therapy wrap 3-6x/day for 20 minutes at a time. Encourage ambulation throughout the day and incentive spirometer 10x/hour. Elevate affected extremity above heart as tolerated. Brace: Wear knee immobilizer at night x 2 weeks. - Treatments Skin tear care topically daily PRN per policy List/Other: Opsite placed. Keep dressing intact until first follow up appointment. If greater than 50% saturated, notify office, remove dressing and place appropriate dressing back in place. Leave Zipline intact. Opsite dressing is water resistant, not water-proof. OK to shower, but do not get dressing wet. - Diet Orders Regular CERTIFICATION: I certify that the transfer of the above named patient to an Extended Care Facility is necessary for the continuing treatment of the diagnosis listed. The above information is true and accurate reflection of patient's current condition. Confidential - Redisclosure prohibited without a patient's written consent.
[2018-01-12] MEDS: ALPRAZolam 0.5 MG TABLET PO PRN (21:47)
[2018-01-13] MEDS: *HR* Enoxaparin 30 MG/0.3 ML SYRINGE SQ SCH (06:02)
[2018-01-13] MEDS: Insulin LISPRO 300 UNITS/3 ML VIAL SQ SCH ×2 (07:30→11:52)
--- NOTE | 2018-01-13 08:25 | Orthopedics Progress Note ---
Date of Encounter: 01/13/18 Time of Encounter: 08:25 - Assessment and Plan (1) Obesity (BMI 35.0-39.9 without comorbidity) Current Visit: Yes Status: Chronic (2) Osteoarthritis of right knee Current Visit: No Status: Chronic Qualifiers: Osteoarthritis type: unspecified Qualified Code(s): M17.11 - Unilateral primary osteoarthritis, right knee (3) Status post total right knee replacement Current Visit: No Status: Acute (4) HTN (hypertension) Current Visit: No Status: Chronic Qualifiers: Hypertension type: unspecified Qualified Code(s): I10 - Essential (primary ) hypertension (5) Polycystic kidney disease Current Visit: No Status: Chronic (6) Chronic kidney disease (CKD), stage III (moderate) Current Visit: No Status: Chronic (7) Secondary hyperparathyroidism Current Visit: No Status: Chronic Subjective Interval history: Patient was seen this morning doing well without complaints. Afebrile vital signs stable. Operative extremity: Neurovascularly intact Dressing clean dry and intact Calves nontender Assessment and plan: Continue with postoperative care Discharged today Objective Vital signs: Vital Signs Temp Pulse Resp BP Pulse Ox 01/13/18 06:40 98.3 F 88 20 129/65 97 01/13/18 00:10 98.4 F 88 16 112/74 94 01/12/18 19:38 98.5 F 92 16 134/79 99 01/12/18 15:04 98.8 F 90 16 116/69 99 01/12/18 11:10 98.3 F 87 16 111/75 97 Intake and Output 01/12/18 01/13/18 01/13/18 23:59 07:59 15:59 Output Total 400 / 400 Balance -400 / -400 Output: Urine 400 / 400 Other: # Voids 1 Blood Glucose* 140 126 - Labs CBC & BMP: 01/11/18 01:00 01/11/18 01:00 Labs: Abnormal lab results Hgb 10.2 g/dL (11.5-15.4) L 01/11/18 01:00 Hct 30.9 % (35.3-44.9) L 01/11/18 01:00 Sodium 131 mEq/L (136-145) L 01/11/18 01:00 Est GFR ( Amer) 57 (> 60) L 01/11/18 01:00 Est GFR (Non-Af Amer) 47 (> 60) L 01/11/18 01:00 Glucose 127 mg/dL (70-105) H 01/11/18 01:00 POC Glucose 140 mg/dL (70-99) H 01/12/18 19:43 Calculated Osmolality 276 (280-300) L 01/11/18 01:00 - VTE Documentation of Mechanical Device: Intermittent pneumatic compression device Consult Discharge Plan - Plan Referrals: Isreal Eng DO [Primary Care Provider] - Prescriptions: Apixaban [Eliquis] 2.5 mg PO BID 12 Days #24 tablet
[2018-01-13 10:47] VITALS: BP 127/77
[2018-01-13] MEDS: BuPROPion XL (24 HR) 150 MG TABLET PO SCH (12:11)
[2018-01-13] MEDS: Losartan/HCTZ 50-12.5 TABLET PO SCH (12:12)
[2018-01-13] MEDS: Cholecalciferol (D-3) 1,000 UNIT TABLET PO SCH (12:12)
== END 2018-01-13 13:57 | DRG 470 ==
LOC: SAMDAY 09:26 → 3NENU 14:56
PROVIDERS: ADMIT Orthopaedic Surgery; ATTEND Orthopaedic Surgery